=== PATIENT | female | born 1945 | race Caucasian/White ===

== ENCOUNTER → 2018-06-17 | Outpatient (CLI) | payer OTHER ==
[2018-06-17 10:03] LABS: ABSOLUTE EOSINOPHILS 0.1 thou/uL (0.0-0.7); ABSOLUTE LYMPHOCYTES 0.8 thou/uL (0.8-5.3); ABSOLUTE MONOCYTES 0.3 thou/uL (0.0-1.2); ABSOLUTE NEUTROPHILS 1.9 thou/uL (1.6-8.1); EOSINOPHILS 2.5 %; HEMATOCRIT 39.6 % (37.0-47.0); HEMOGLOBIN 13.3 gm/dL (12.0-15.0); LYMPHOCYTES 25.8 %; MCH 34.8 pg (26.0-34.0); MCHC 33.7 g/dL (28.0-37.0); MCV 103.2 fL (80.0-100.0); MONOCYTES 9.9 %; MPV 9.7 fl. (7.2-11.1); NUCLEATED RBCS 0 /100WBC; POLYS 60.8 %; RBC 3.83 mil/uL (4.20-5.00); RDW-CV 13.6 % (10.5-14.5); WBC 3.1 thou/uL (4.0-11.0)
[2018-06-17 10:45] LABS: PLATELET ESTIMATE DECREASED
[2018-06-17 10:47] LABS: LARGE PLATELETS OCCASIONAL
[2018-06-17 10:49] LABS: PLATELET COUNT* 50 thou/uL (150-400)
== END ==
LOC: M.LAB 09:39
PROVIDERS: Family Medicine
DX: D69.59 Other secondary thrombocytopenia (principal)